=== PATIENT | female | born 1940 | race Caucasian/White ===

== ENCOUNTER → 2018-02-07 13:59 | Outpatient (CLI) | payer MEDICARE, SELFPAY ==
[2018-02-07 14:22] LABS: Add Manual Diff / Slide Review NO; Basophils Percent Auto 0.4 % (0-2); Eosinophils Percent Auto 1.5 % (2-4); Hematocrit 33.8 % (36-46); Hemoglobin 11.6 g/dL (12.0-16.0); Lymphocytes Percent Auto 27.6 % (25-40); Mean Corpuscular HGB Conc 34.2 % (30-36); Mean Corpuscular Hemoglobin 31.6 PG (26-34); Mean Corpuscular Volume 92.3 fL (80-100); Monocytes Percent Auto 11.5 % (3-14); Neutrophils Absolute Auto 2600 /uL (3000-5900); Platelet Count 256 X10^3/uL (150-400); Red Blood Cell Count 3.66 X10^6/uL (4.0-5.2); Red Cell Distribution Width 13.7 % (11.6-14.8); White Blood Cell Count 4.5 X10^3/uL (4.5-11.0)
[2018-02-07 14:42] LABS: HEMOLYSIS < 15 (0-50)
[2018-02-07 14:47] LABS: Alanine Aminotransferase 19 IU/L (9-52); Albumin 4.1 g/dL (3.5-5.0); Albumin Globulin Ratio 1.5 (1.0-2.8); Alkaline Phosphatase 44 U/L (38-126); Aspartate Aminotransferase 22 IU/L (14-36); Bilirubin Total 0.2 mg/dL (0.2-1.3); Blood Urea Nitrogen 6 mg/dL (7-17); Calcium 9.2 mg/dL (8.4-10.2); Carbon Dioxide 27 mmol/L (22-32); Chloride 100 mmol/L (98-107); Estimated Glomerular Filt Rate > 60.0 mL/min (>60); Globulin 2.7 g/dL (1.7-4.1); Glucose 84 mg/dL (80-110); Potassium 4.2 mmol/L (3.4-5.1); Sodium 136 mmol/L (137-145); Total Protein 6.8 g/dL (6.3-8.2)
[2018-02-07 17:11] LABS: Folate 13.8 ng/mL (2.76-20.0); Vitamin B12 269 pg/mL (239-931)
== END ==
PROVIDERS: Family Provider Naturopath; PCP Internal Medicine; Visit Provider Nurse Practitioner Gerontology
DX: D64.9 Anemia, unspecified (principal)
CPT/HCPCS: 36415; 80053; 82607; 82746; 85025

== ENCOUNTER → 2018-02-08 12:15 | Outpatient (CLI) | payer MEDICARE, SELFPAY ==
--- NOTE | 2018-02-08 | DI.MG.S_ITS ---
BILATERAL DIGITAL SCREENING MAMMOGRAM 3D/2D WITH CAD: 02/08/2018 CLINICAL: Routine screening. Comparison is made to exams dated: 01/20/2017 mammogram, 01/12/2015 mammogram, and 01/15/2016 mammogram - [facility]. The tissue of both breasts is heterogeneously dense. This may lower the sensitivity of mammography. Current study was also evaluated with a Computer Aided Detection (CAD) system. No significant masses, calcifications, or other findings are seen in either breast. There has been no significant interval change. IMPRESSION: NEGATIVE There is no mammographic evidence of malignancy. A 1 year screening mammogram is recommended. This exam was interpreted at Station ID: [id number]. NOTE: For mammograms, a report in lay terms will be sent to the patient. Approximately 15% of breast malignancies will not be visualized mammographically. In the management of a palpable breast mass, a negative mammogram must not discourage biopsy of a clinically suspicious lesion. Electronically Signed By: Phillip paz/swati:02/08/2018 17:04:24 copy to: ROBERT BARKER letter sent: Normal Exam ACR BI-RADS Category 1: Negative 3341F
== END ==
PROVIDERS: Family Provider Naturopath; PCP Internal Medicine; Visit Provider Internal Medicine
DX: Z12.31 Encounter for screening mammogram for malignant neoplasm of breast (principal)
CPT/HCPCS: 77063; 77067

== ENCOUNTER 2018-04-03 23:32 | Emergency (ER) | payer MEDICARE, SELFPAY ==
[2018-04-03 23:41] VITALS: BP 144/77; PULSE 71; RESP 18; TEMP 36.9; O2SAT 97
--- NOTE | 2018-04-04 03:05 | ED.WOUNDLAC ---
HPI - Wound/Laceration General Chief Complaint: Wound/Laceration Stated Complaint: cut under left eye, tripped over cat Time Seen by Provider: 04/04/18 02:08 Source: patient Mode of arrival: ambulatory Limitations: no limitations History of Present Illness HPI narrative: Patient states she tripped over her cat and hit her face on the corner of a table. Patient states she did not fall all the way down, and did not lose consciousness. She complains of a laceration under her left eyelid, as well as mild pain and bruising on her face. No other injuries. Onset (ago): hour(s) ( One) Location: face Place: home Patient tetanus UTD: Yes Context: accidental Associated symptoms: none Related Data Home Medications Medication Instructions Recorded Confirmed estradiol 0.05 mg 2XW #0 05/08/17 02/14/18 melatonin 0.75 mg PO QPM #0 05/08/17 02/14/18 methimazole 1 mg PO QAM #0 05/08/17 02/14/18 Fruit Anthocyanins 2 tbsp PO QAM 02/14/18 02/14/18 Mk-7 1 PO QAM 02/14/18 Osteoben 4 PO 3-4XD 02/14/18 Valery Biotin-8 8 mg PO BID 02/14/18 02/14/18 cholecalciferol (vitamin D3) 2,000 unit PO DAILY 02/14/18 02/14/18 [Super Daily D3] Aloe Cadabra VAGINAL PRN PRN 02/16/18 Laura Progest 0.5 tab PO BID 02/16/18 02/16/18 Gentian Tincture 5 drp/day PO TID 02/16/18 02/16/18 Now C-500 3 PO QAM 02/16/18 Oral Sinus Probiotic 1 PO QAM 02/16/18 Restore Sinus Vincent INHALATION QAM 02/16/18 Vitamin E Suppository VAGINAL PRN PRN 02/16/18 Allergies Allergy/AdvReac Type Severity Reaction Status Date / Time No Known Drug Allergies Allergy Verified 02/14/18 14:45 Review of Systems Review of Systems All systems reviewed & are unremarkable except as noted in HPI and below ENT Comments: facial laceration PFSH Medical History Fibrocystic breast disease (Acute) Surgical History History of third molar tooth extraction Status post breast biopsy Status post tonsillectomy and adenoidectomy Social History Smoking Status: Never smoker Exam Initial Vital Signs Initial Vital Signs: Vital Signs Temperature 98.4 F 04/03/18 23:41 Pulse Rate 71 04/03/18 23:41 Respiratory Rate 18 04/03/18 23:41 Blood Pressure 144/77 H 04/03/18 23:41 Pulse Oximetry 97 04/03/18 23:41 Const General: cooperative and well developed Nutritional Appearance: well nourished Orientation: alert, awake, oriented x3 and not confused HENSC Face and sinus: other ( Patient has a 1.5 cm jagged facial laceration under and involving her inferior left lower eyelid, but not involving the tarsal plate. No globe injury.) Eyes General: appearance normal, both eyes and all related structures Eyelids: eyelids normal Conjunctivae: conjunctivae normal Sclera: sclerae normal Pupils: PERRL EOM: EOM intact bilaterally Neck Neck: normal visual inspection, trachea midline, No lymphadenopathy, No midline deformity and No JVD Lymphatic: No lymphedema Resp Effort & Inspection: normal respiratory effort Back/Spine/Pelvis Back: No CVA tenderness Cervical Spine: cervical ROM normal and No pain with cervical ROM Thoracic/Lumbar Spine: thoracic and lumbar spine normal to inspection Skin General: no rashes or lesions noted, No jaundice and No petechiae Trauma: laceration ( See above, and her facial exam.) Neuro General: alert, oriented x3, gait normal and no focal motor deficits Speech: speech normal Extrem General: full ROM, no clubbing, cyanosis or edema, no pedal edema and no calf tenderness Procedures Laceration Repair Laceration 1: Site: face Side (If applicable): left Size (cm): 1.5 Description: irregular Depth: simple, single layer Local Anesthetic: lidocaine 2% Amount of anesthesia used (mL): 2 Pre-repair: wound explored, irrigated extensively and deep structures intact Skin layer closed with: nylon Size (cm): 6-0 Number of sutures: 4 Technique: simple, interrupted Course Hospital Course: Patient's wound was repaired, as above. We discussed wound care at home, as well as the usual indications for return. We have also discussed the need for suture removal in 5 days. Orders Ordered: Discontinued Medications Diphtheria/Tetanus/Acell Pertussis (Adacel) 0.5 ml IM .ONCE ONE Stop: 04/04/18 03:23 Last Admin: 04/04/18 03:24 Dose: 0.5 ml Vital Signs - 8 hr 04/03/18 23:41 Temperature 98.4 F Pulse Rate 71 Respiratory Rate 18 Blood Pressure 144/77 H Pulse Oximetry 97 MDM - Wound/Laceration Medical Records Attestation: I reviewed the patient's medical records. Discharge Plan Departure Patient Disposition: Home Clinical Impression: Laceration Discharge Date/Time: 04/04/18 03:27 Interventions: ED Discharge Assessment Last Done: 04/04/18 03:25 Instructions: DI for Laceration Repair Prescriptions: No Action melatonin 1 MG/1 ML liquid 0.75 mg PO QPM Qty: 0 RF: 0 methimazole 5 MG tablet 1 mg PO QAM Qty: 0 RF: 0 estradiol 0.5 MG tablet 0.05 mg 2XW Qty: 0 RF: 0 cholecalciferol (vitamin D3) [Super Daily D3] 2,000 unit/drop Drops 2,000 unit PO DAILY RF: 0 Fruit Anthocyanins 2 tbsp PO QAM RF: 0 Mk-7 1 PO QAM RF: 0 Osteoben 4 PO 3-4XD RF: 0 Valery Biotin-8 8 mg PO BID RF: 0 Aloe Cadabra insert Vaginal PRN PRN (Reason: Vaginal Dryness) RF: 0 Laura Progest 0.5 tab PO BID RF: 0 Gentian Tincture drops 5 drp/day PO TID RF: 0 Now C-500 3 PO QAM RF: 0 Oral Sinus Probiotic 1 PO QAM RF: 0 Restore Sinus Vincent aerosol Inhalation QAM RF: 0 Vitamin E Suppository suppository Vaginal PRN PRN (Reason: Vaginal Dryness) RF: 0 Referrals: Giovanni Koenig MD [Primary Care Provider] - ( Please follow up with your new doctor in 5 days for suture removal. You may also good or urgent care to have the sutures removed, or come back to the emergency department.)
[2018-04-04] MEDS: TET,DIPH,PERTUSS(ACELL),VAC/PF 0.5 ML SYRINGE IM (03:24)
[2018-04-04 03:25] VITALS: BP 161/57; PULSE 77; RESP 26; TEMP 36.6; O2SAT 99
== END 2018-04-04 03:27 | disposition home or self-care (01) ==
PROVIDERS: Emergency Provider Emergency Medicine; Family Provider Naturopath; PCP Internal Medicine
DX: S01.112A Laceration without foreign body of left eyelid and periocular area, initial encounter (principal); W01.190A Fall on same level from slipping, tripping and stumbling with subsequent striking against furniture, initial encounter
CPT/HCPCS: 12011; 90471; 99283; 90715

== ENCOUNTER → 2018-04-24 15:24 | Outpatient (CLI) | payer MEDICARE, SELFPAY ==
[2018-04-24 15:54] LABS: Add Manual Diff / Slide Review NO; Basophils Percent Auto 0.9 % (0-2); Eosinophils Percent Auto 1.3 % (2-4); Hematocrit 34.1 % (36-46); Hemoglobin 11.6 g/dL (12.0-16.0); Lymphocytes Percent Auto 26.3 % (25-40); Mean Corpuscular Hemoglobin 31.4 PG (26-34); Mean Corpuscular Volume 92.3 fL (80-100); Monocytes Percent Auto 10.3 % (3-14); Neutrophils Absolute Auto 3100 /uL (3000-5900); Neutrophils Percent Auto 61.2 % (50-75); Platelet Count 278 X10^3/uL (150-400); Red Blood Cell Count 3.69 X10^6/uL (4.0-5.2); Red Cell Distribution Width 14.1 % (11.6-14.8)
[2018-04-24 16:08] LABS: Alanine Aminotransferase 26 IU/L (9-52); Albumin 4.2 g/dL (3.5-5.0); Albumin Globulin Ratio 1.7 (1.0-2.8); Alkaline Phosphatase 44 U/L (38-126); Aspartate Aminotransferase 21 IU/L (14-36); Bilirubin Total 0.4 mg/dL (0.2-1.3); Bilirubin Unconjugated 0.1 mg/dL (0.0-1.1); Globulin 2.5 g/dL (1.7-4.1); HEMOLYSIS < 15 (0-50); Total Protein 6.7 g/dL (6.3-8.2)
[2018-04-24 17:33] LABS: Thyroid Stimulating Hormone 0.51 uIU/mL (0.47-4.68)
[2018-04-24 17:52] LABS: Vitamin B12 556 pg/mL (239-931)
[2018-04-24 18:13] LABS: Free T3, Triiodothyronine Free 2.76 pg/mL (2.77-5.27); Free T4, Direct Thyroxine 0.78 ng/dL (0.78-2.19)
--- NOTE | 2018-04-26 15:33 | PC.NURSE ---
Pt called today wanting a refill of her OTC Vitamin B12. Her last appt was with Dr Samson and she has not yet established with another provider at the clinic. After speaking with [facility] it was determined that her insurance was not paying for the Rx OTC anyway and she would be able to get the same medication at the same or maybe cheaper depending on the sales and the brand at the time of purchase. This info was relayed to pt and she will purchase her self.
== END ==
PROVIDERS: Internal Medicine Endocrinology, Diabetes & Metabolism; Family Provider Naturopath; PCP Internal Medicine; Visit Provider Internal Medicine Hematology & Oncology
DX: D64.9 Anemia, unspecified (principal); E05.80 Other thyrotoxicosis without thyrotoxic crisis or storm
CPT/HCPCS: 36415; 80076; 82607; 84439; 84443; 84481; 85025

== ENCOUNTER → 2018-06-14 13:19 | Outpatient (CLI) | payer MEDICARE, SELFPAY | PROVIDERS: Family Provider Naturopath; PCP Internal Medicine; Visit Provider Internal Medicine Endocrinology, Diabetes & Metabolism | DX: M81.0 Age-related osteoporosis without current pathological fracture (principal); Z78.0 Asymptomatic menopausal state | CPT/HCPCS: 77080 ==

== ENCOUNTER → 2019-02-13 14:40 | Oncology outpatient (ONC) | payer MEDICARE, SELFPAY ==
--- NOTE | 2018-02-14 14:03 | ONC.PN ---
Assessment and Plan - Time Spent with Patient IMPRESSION: 1. NORMOCYTIC ANEMIA. 2. LOW B12 WITH HISTORY OF DEFICIENCY. 3. HYPOTHYROIDISM I reviewed her recent lab results and plan for treatment and follow-up. Anemia is mild and stable. No new symptoms or findings on examination today to raise additional concerns. Previous B12 levels ranging 500-600 with current value in the low normal range. Given her history and the findings I would recommend resuming B12 supplement and we reviewed this today. Discussed additional laboratory testing including methylmalonic acid. She has a needle aversion and would prefer just to take B12 and not have more labs done at this time. She otherwise appears to be doing well and will call with any new concerns. Plan to have labs drawn in March when she does follow up with Dr. Burns. PLAN: 1. Resume oral B12. 2. Monitor for new symptoms and call back as needed. 3. CBC and B12 level in 2-3 months. 4. Follow up with Dr. Burns and with other providers as planned. 5. Return appointment here in 1 year. 6. CBC, CMP, B12 level prior to the visit. DICTATED BY JOHAN SANCHEZ MD MEDICAL ONCOLOGY AND HEMATOLOGY PN -Subjective Interval history: HEMATOLOGY/ONCOLOGY PROGRESS NOTE DATE OF SERVICE: FEBRUARY 14, 2018 PATIENT NAME: LARS ALEJANDRO DATE OF : 1940 PCP: Giovanni Koenig MD IDENTIFICATION: Ms. Alejandro is a 77-year-old woman with normocytic anemia who returns in follow-up today. INTERVAL HISTORY: She returns alone. Last seen here in clinic by Dr. Valadez February 15, 2017. She continues to feel well and has no new symptoms or specific concerns. She has been followed for anemia and notes suggest a past history of B12 deficiency. She says she was on B12 supplement a number of years ago though not in the past 5 years at least. She otherwise feels well. She denies any tingling or numbness in the fingers or toes. No fever, night sweats or recent weight loss. No rash, bruising, hematuria or dark colored urine. She denies myalgias, bone pain, headaches or new neurologic symptoms. She eats a balanced diet including meat and FISH. Not Vegan. PAST HISTORY FROM LAST NOTE: History of present illness Date of Service: 02/15/17 Primary Care Provider Primary Care Provider: Giovanni Koenig MD Hx of Present illness The patient is a 76 year old Female who is being seen in the clinic 02/15/17 for persistent normochromic normocytic anemia. On each visit she has been stable and further workup would require a bone marrow examination which we have deferred. The patient workup ruled out B12, folic acid, iron deficiency, hemolytic anemia and other ordinary causes of anemia. She did have a borderline EPO level suggestive of either renal insufficiency related anemia or anemia of chronic disease. Her kidney function however is normal. She was last seen here a year ago and stable and did not wish to pursue bone marrow examination that time. Past Medical History 1. Anemia, normochromic-normocytic. 2. History of B12 deficiency. 3. Osteoporosis. 4. Other history including tonsillectomy and negative breast biopsy. Past Surgical History 4. Other history including tonsillectomy and negative breast biopsy. 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 He walks 3 miles a day and goes to [employer]. HEENT: Denies sinus pain, ear pain, sore throat, difficulty swallowing RESPIRATORY: Denies exertional dyspnea, shortness of breath, cough, wheezing, hemoptysis, sputum. CARDIOVASCULAR: Denies chest pain, palpitations, orthopnea, edema, lightheadedness. NEUROLOGIC: Denies weakness, headache, numbness, change in speech, confusion seizures, incoordination. GASTROINTESTINAL: Denies nausea, vomiting, abdominal pain, diarrhea, constipation, melena. : Denies dysuria, frequency, incontinence, hematuria, retention. MUSCULOSKELETAL: Denies leg pain, arm pain, back pain, neck pain, hand pain, foot pain. SKIN: Denies rash, bruising, tender areas. 14 system review is negative except for those stated above. Objective Vital Signs Vital Signs Date Time Temp Pulse Resp B/P B/P Pulse O2 O2 Flow FiO2 Mean Ox Delivery Rate 02/15 1207 98.2 89 16 144/70 99 kg 49.100 BMI 20.4 BSA 1.46 Exam Physical Exam Gen.: She looks well. Her BMI is 20.4 kg. Squared BSA 1.46 m?, weight 108 pounds, height 5 feet 1 inches. Temperature 98.2, pulse 89, respiratory 16, blood pressure 144/70, pulse ox 99%. Head and neck, normal skin and hair pupils equal round and reactive without icterus or conjunctivitis, oral and oropharyngeal mucosa normal, teeth in good repair. Neck is supple without thyromegaly or tracheal deviation. Lymph nodes are negative in the neck, supraclavicular, axillary, and inguinal areas Ty are clear to auscultation and percussion Cardiac exam rhythm is regular without murmur or peripheral edema. Abdomen soft nontender without organomegaly or ascites or masses. Extremities without deformity tenderness or effusions Skin shows normal turgor and color. Laboratory Tests Lab % Saturation 24 % 03/12/14 1546 Ferritin 45.7 ng/mL 08/26/14 1651 Lab BUN 8.0 mg/dL 02/13/17 1108 Creatinine 0.60 mg/dL 02/13/17 1108 Folate >20.0 ng/mL H 02/18/14 1541 Folate 15.9 ng/mL 03/12/14 1546 Vitamin B12 561 pg/mL 02/18/14 1541 Vitamin B12 623 pg/mL 03/12/14 1546 Hct 33.7 % L 02/16/15 1135 Hct 34.9 % L 02/15/16 1157 Hct 35.1 % L 07/15/16 1409 Hct 33.6 % L 02/13/17 1108 Plt Count 255 X10^3/uL 08/21/14 1313 Plt Count 285 X10^3/uL 02/16/15 1135 Plt Count 241 X10^3/uL 02/15/16 1157 Plt Count 291 X10^3/uL 07/15/16 1409 Plt Count 261 X10^3/uL 02/13/17 1108 WBC 3.8 X10^3/uL L 05/30/14 1133 WBC 4.7 X10^3/uL 08/21/14 1313 WBC 4.3 X10^3/uL L 02/16/15 1135 WBC 4.3 X10^3/uL L 02/15/16 1157 WBC 5.6 X10^3/uL 07/15/16 1409 WBC 4.0 X10^3/uL L 02/13/17 1108 Assessment/Plan Assessment This is a healthy 76-year-old woman with a [place] normocytic anemia, the etiology has not been identified. She has elected not to perform a bone marrow examination further aggressive workup unless her blood counts changed significantly. It is noted that her last colonoscopy was in 2008; though she has not been iron deficient, she should have a repeat colonoscopy at ten years. Plan for treatment Per her wishes she will be seen in one-year follow-up with a CBC CMP B12 and folic acid. Copies to Giovanni Koenig MD at 0921 <Electronically signed by Rudy Valadez MD> (PLEASE NOTE): This report may have been all or partially generated using a voice recognition software program. While every effort has been made to edit content upon its completion, deliverer merchandise errors may occur. Please contact the [facility] [employer] Dept. at if there are any questions, or if further clarification is necessitated. - Additional ROS Additional ROS: REVIEW OF SYSTEMS General: No fever or night sweats. HEENT: Negative. Respiratory: No cough or dyspnea. Cardiac: No chest pain, PND or orthopnea. GI: No bloating or early satiety. : Negative. Musculoskeletal: Negative. Neurologic: Negative. Home Medications and Allergies Home Medications Medication Instructions Recorded Confirmed Type estradiol 0.05 mg 2XW #0 05/08/17 02/14/18 History melatonin 0.75 mg PO QPM #0 05/08/17 02/14/18 History methimazole 1 mg PO QAM #0 05/08/17 02/14/18 History Fruit Anthocyanins 2 tbsp PO QAM 02/14/18 02/14/18 History Mk-7 1 PO QAM 02/14/18 History Osteoben 4 PO 3-4XD 02/14/18 History Valery Biotin-8 8 mg PO BID 02/14/18 02/14/18 History cholecalciferol (vitamin D3) 2,000 unit PO DAILY 02/14/18 02/14/18 History [Super Daily D3] Allergies Allergy/AdvReac Type Severity Reaction Status Date / Time No Known Drug Allergies Allergy Verified 02/14/18 14:45 Exam - Constitutional positive no acute distress, positive thin, positive cooperative - Routine HEENT Exam Head: Present: normocephalic, atraumatic. Absent: cushingoid faces, facial swelling Eye: Present: EOMI, PERRL. Absent: conjunctival icterus, scleral injection, periorbital ecchymosis, periorbital swelling ENT: Present: mucous membranes moist, oropharynx clear, dentition normal - Routine Neck Exam Present: supple, full ROM. Absent: JVD, lymphadenopathy - Routine Respiratory Exam Present: Clear to auscultation bilaterally. Absent: accessory muscle use, respiratory distress - Routine Cardiovascular Exam Present: RRR, S1, S2. Absent: murmur, S3 - Routine Abdominal Exam Present: soft, normoactive bowel sounds. Absent: tenderness, distended, organomegaly Palpation/Percussion: Absent: hepatomegaly, splenomegaly - Routine Extremities Exam Absent: cyanosis, clubbing, edema - Routine Back/Spine Exam Back/Spine: Present: full ROM. Absent: paraspinal tenderness, vertebral tenderness - Routine Skin Exam Present: intact. Absent: cyanosis, erythema, mottling, jaundice, rash, ecchymosis - Routine Neurological Exam Present: alert, oriented X3, moving all extremities, normal speech. Absent: altered mental status, tremors - Routine Psychiatric Exam Present: normal affect, normal thought process, cooperative, good insight, good judgment
[2018-02-14 14:35] VITALS: BP 141/69; PULSE 84; RESP 15; TEMP 36.8; O2SAT 99
--- NOTE | 2018-02-16 11:33 | PC.NURSE ---
Addendum entered by Adelaide Navarrete R.N. 02/21/18 14:33: Dr Samson prescribed B-12 1000mg PO daily 1 month supply with 1 refill.Called to [facility] Original Note: Pt was in clinic on 02/[address] Samson. She called regarding an RX for OTC B12. Pt was under the impression that one would be sent to [facility] in [place]. She does not know the dose or dosing instructions so is also looking for some clarification on this as well. Some OTC medications are covered under her medication plan and she would prefer a script be sent.
[2019-02-13 14:48] VITALS: BP 135/70; PULSE 75; RESP 18; TEMP 36.4; O2SAT 100
--- NOTE | 2019-02-13 15:07 | P.PNONC_ITS ---
PN -Subjective Interval history: HEMATOLOGY/ONCOLOGY PROGRESS NOTE DATE OF SERVICE: FEBRUARY 14, 2018 PATIENT NAME: LARS ALEJANDRO DATE OF : 1940 PCP: Giovanni Koenig MD IDENTIFICATION: Ms. Alejandro is a 77-year-old woman with normocytic anemia who returns in follow-up today. INTERVAL HISTORY: She was seen here last a year ago. She had a slightly low B12 level in started taking oral replacement. She has been tolerating it well. She notes that her strength and energy level have been stable. She has not had any unusual bleeding or bruising. She denies any shortness of breath or cough. No chest pain dizziness or lightheadedness. She denies any other changes in her health. Past Medical History 1. Anemia, normochromic-normocytic. 2. History of B12 deficiency. 3. Osteoporosis. 4. Other history including tonsillectomy and negative breast biopsy. - Patient Self-Reported Symptoms SR Skin issues: Dry skin Home Medications and Allergies Home Medications Medication Instructions Recorded Confirmed Type estradiol 0.05 mg 2XW #0 05/08/17 02/13/19 History melatonin 0.75 mg PO QPM #0 05/08/17 02/13/19 History methimazole 1 mg PO QAM #0 05/08/17 02/13/19 History Fruit Anthocyanins 2 tbsp PO QAM 02/14/18 02/13/19 History Mk-7 1 PO QAM 02/14/18 History Osteoben 4 PO 3-4XD 02/14/18 History Valery Biotin-8 8 mg PO BID 02/14/18 02/14/18 History cholecalciferol (vitamin D3) 2,000 unit PO DAILY 02/14/18 02/13/19 History [Super Daily D3] Aloe Cadabra 4 VAGINAL PRN PRN 02/16/18 History Laura Progest 0.5 tab PO BID 02/16/18 02/13/19 History Gentian Tincture 5 drp/day PO TID 02/16/18 02/13/19 History Now C-500 3 PO QAM 02/16/18 History Oral Sinus Probiotic 1 PO QAM 02/16/18 History Restore Sinus Gordon INHALATION QAM 02/16/18 History Vitamin E Suppository VAGINAL PRN PRN 02/16/18 History Allergies Allergy/AdvReac Type Severity Reaction Status Date / Time No Known Drug Allergies Allergy Verified 02/14/18 14:45 Exam Vital signs: Vital Signs Temp Pulse Resp BP Pulse Ox 02/13/19 14:48 97.6 F 75 18 135/70 100 Intake and Output 02/12/19 02/13/19 02/13/19 23:59 07:59 15:59 Other: Weight 48.5 kg Patient Weight 02/13/19 23:59 Weight 48.5 kg - Constitutional positive no acute distress, positive average body habitus Comments: She is not further examined. Results - Labs CBC and B12 were within normal limits. Assessment and Plan (1) Anemia Current visit: No Status: Acute 78-year-old woman with a longstanding history of mild anemia. She has been on oral B12 replacement and her hemoglobin and hematocrit have normalized. I recommended that she continue to take the B12. I have not scheduled a follow-up appointment for her but would be happy to see her again in the future should her anemia recur.
== END ==
PROVIDERS: Family Provider Naturopath; PCP Internal Medicine
DX: D64.9 Anemia, unspecified (principal); E53.8 Deficiency of other specified B group vitamins; M81.0 Age-related osteoporosis without current pathological fracture
CPT/HCPCS: 99213; 99214

== ENCOUNTER → 2019-02-18 14:14 | Outpatient (CLI) | payer MEDICARE, SELFPAY ==
--- NOTE | 2019-02-18 | DI.MG.S_ITS ---
BILATERAL DIGITAL SCREENING MAMMOGRAM 3D/2D WITH CAD: 02/18/2019 CLINICAL: Routine screening. Comparison is made to exams dated: 02/08/2018 mammogram, 01/20/2017 mammogram, and 01/15/2016 mammogram - [facility]. The tissue of both breasts is heterogeneously dense. This may lower the sensitivity of mammography. Current study was also evaluated with a Computer Aided Detection (CAD) system. No significant masses, calcifications, or other findings are seen in either breast. There has been no significant interval change. IMPRESSION: NEGATIVE There is no mammographic evidence of malignancy. A 1 year screening mammogram is recommended. This exam was interpreted at Station ID: [id number]. NOTE: For mammograms, a report in lay terms will be sent to the patient. Approximately 15% of breast malignancies will not be visualized mammographically. In the management of a palpable breast mass, a negative mammogram must not discourage biopsy of a clinically suspicious lesion. Electronically Signed By: Dorcas choi/swati:02/18/2019 18:00:31 letter sent: Normal Exam ACR BI-RADS Category 1: Negative 3341F
== END ==
PROVIDERS: Family Provider Naturopath; PCP Internal Medicine; Visit Provider Internal Medicine
DX: Z12.31 Encounter for screening mammogram for malignant neoplasm of breast (principal)
CPT/HCPCS: 77063; 77067

== ENCOUNTER → 2020-02-25 15:49 | Outpatient (CLI) | payer MEDICARE, SELFPAY ==
--- NOTE | 2020-02-25 | DI.MG.S_ITS ---
BILATERAL DIGITAL SCREENING MAMMOGRAM 3D/2D WITH CAD: 02/25/2020 CLINICAL: Routine screening. Comparison is made to exams dated: 02/18/2019 mammogram, 02/08/2018 mammogram, and 01/20/2017 mammogram - [facility]. There are scattered fibroglandular elements in both breasts. Current study was also evaluated with a Computer Aided Detection (CAD) system. No significant masses, calcifications, or other findings are seen in either breast. There has been no significant interval change. IMPRESSION: NEGATIVE There is no mammographic evidence of malignancy. A 1 year screening mammogram is recommended. This exam was interpreted at Station ID: [id number]. NOTE: For mammograms, a report in lay terms will be sent to the patient. Approximately 15% of breast malignancies will not be visualized mammographically. In the management of a palpable breast mass, a negative mammogram must not discourage biopsy of a clinically suspicious lesion. Electronically Signed By: Gerri jarquin/swati:02/25/2020 16:46:57 letter sent: Normal Exam ACR BI-RADS Category 1: Negative 3341F
== END ==
PROVIDERS: Family Provider Naturopath; PCP Internal Medicine; Referring Provider Internal Medicine; Visit Provider Internal Medicine
DX: Z12.31 Encounter for screening mammogram for malignant neoplasm of breast (principal)
CPT/HCPCS: 77063; 77067

== ENCOUNTER → 2021-03-09 12:56 | Outpatient (CLI) | payer MEDICARE, SELFPAY | PROVIDERS: PCP Family Medicine; Referring Provider Family Medicine; Visit Provider Family Medicine | DX: M81.0 Age-related osteoporosis without current pathological fracture (principal); Z78.0 Asymptomatic menopausal state | CPT/HCPCS: 77080 ==

== ENCOUNTER → 2021-04-03 13:21 | Outpatient (CLI) | payer MEDICARE, SELFPAY ==
--- NOTE | 2021-04-03 13:23 | DI.MG.S_ITS ---
BILATERAL DIGITAL SCREENING MAMMOGRAM 3D/2D WITH CAD: 04/03/2021 CLINICAL: Routine screening. Comparison is made to exams dated: 02/25/2020 mammogram, 02/18/2019 mammogram, 02/08/2018 mammogram, 01/20/2017 mammogram, and 01/15/2016 mammogram - [facility]. The tissue of both breasts is heterogeneously dense. This may lower the sensitivity of mammography. Current study was also evaluated with a Computer Aided Detection (CAD) system. No significant masses, calcifications, or other findings are seen in either breast. There has been no significant interval change. IMPRESSION: NEGATIVE There is no mammographic evidence of malignancy. A 1 year screening mammogram is recommended. This exam was interpreted at Station ID: [id number]. NOTE: For mammograms, a report in lay terms will be sent to the patient. Approximately 15% of breast malignancies will not be visualized mammographically. In the management of a palpable breast mass, a negative mammogram must not discourage biopsy of a clinically suspicious lesion. Electronically Signed By: Gualberto lgover/swati:04/06/2021 08:25:16 letter sent: Normal Exam ACR BI-RADS Category 1: Negative 3341F
== END ==
PROVIDERS: PCP Family Medicine; Referring Provider Family Medicine; Visit Provider Family Medicine
DX: Z12.31 Encounter for screening mammogram for malignant neoplasm of breast (principal)
CPT/HCPCS: 77063; 77067